=== PATIENT | female | born 1950 | race Caucasian/White ===

== ENCOUNTER 2019-07-06 10:49 | Day surgery (SDC) | payer MEDICARE, MEDICAID, SELFPAY ==
--- NOTE | 2019-07-06 | PATH_ITS ---
[facility] Accession Number: [id number] . 01 Material submitted: . rectum - RECTAL POLYPS . 01 Clinical history: . ENCOUNTER FOR SCREENING FOR MALIGNANT NEOPLASM . 02 Diagnosis: Rectum, Polyps: Fragments of tubular adenoma and fragment of hyperplastic polyp. Additional step sections examined. MRV 07/10/2019 1231 Local . 02 Electronically signed: . Mikey Alvarez MD, PhD, Pathologist NPI- [id number] . 01 Gross description: . Received one formalin-filled container labeled with the patient's name and labeled rectal polyps. The specimen consists of one fragment of hardy, soft tissue and possible debris which measures 0.2 x 0.2 x 0.2 cm. The specimen is totally submitted in one cassette. ([id number]) /[facility] 07/07/2019 0245 Local . 02 Pathologist provided ICD-10: D12.8, K62.1 . 02 CPT . 272646 Performed at: 01 [facility] [address] [facility], [place], [place] [id number] MD Jt Hinojosa MD Phone: [phone] Performed at: 02 [facility] [address] [place], [place] [id number] MD Holley Tijerina MD Phone: [phone]
[2019-07-06] MEDS: FLEETS ENEMA 1 EACH PR ×2 (13:25→13:42)
[2019-07-06 13:51] VITALS: BP 128/85; PULSE 60; RESP 15; TEMP 36.6; O2SAT 95; BMI 22.4
[2019-07-06] MEDS: SODIUM CHLORIDE 0.9% 1,000 ML 200 ML IV (14:07)
--- NOTE | 2019-07-06 14:07 | PM.HP.1 ---
History of Present Illness History of Present Illness Date Patient Seen: 07/06/19 Time Patient Seen: 14:07 Chief complaint: [id number] Narrative: Patient presents for colorectal screening. They had previous colonoscopy 5 years ago that was notable for a poly On further history denies any recent gastrointestinal symptoms. No nausea, vomiting, abdominal pain, loss of appetite, unexplained weight loss, change in bowel habits, diarrhea, constipation, melena, hematochezia, or bright red blood per rectum. Patient History Social History household members: none Family & Social History Social History: household members none Meds Home Medications and Allergies Home Medications Medication Instructions Recorded Confirmed Type alendronate [Fosamax] 70 mg PO QWEEK 07/06/19 07/06/19 History oxybutynin chloride 10 mg PO DAILY 07/06/19 07/06/19 History Allergies Allergy/AdvReac Type Severity Reaction Status Date / Time sulfamethoxazole Allergy Fatigued Verified 07/06/19 13:49 [From Bactrim] trimethoprim [From Bactrim] Allergy Fatigued Verified 07/06/19 13:49 Review of Systems Review of Systems ROS Unobtainable: All systems reviewed & are unremarkable except as noted in HPI and below Exam Vital Signs (past 8 hours): - 07/06/19 13:51 Temperature 97.8 F Pulse Rate 60 Respiratory Rate 15 Blood Pressure 128/85 Pulse Oximetry 95 Oxygen Delivery Method Room Air Narrative Exam Narrative: General-adult female no acute distress, well nourished HEENT-moist mucous membranes, no scleral icterus Neck-supple with full range of motion, no lymphadenopathy Chest- no labored respirations, clear to auscultation bilaterally Cardiac-regular rate and rhythm Abdomen-soft, nontender, non distended Extremities-no edema, warm well perfused Neurological-alert and oriented x 3. No focal deficits Skin-normal temperature and turgor, no rashes or ulcers Assessment & Plan Assessment and plan (1) Screening for colon cancer: Current visit: Yes Status: Acute Assessment & Plan narrative: Patient is requiring colorectal screening. Colonoscopy is recommended. Technical details were discussed. Risks, benefits, alternatives explained. Risks including but not limited to sedation, aspiration, bleeding, pain, missed lesion, incomplete examination, need for further radiographic studies, colonic perforation, need for major abdominal surgery, and all attendant risks major surgery were discussed at length. All questions were answered to their satisfaction, and they voiced understanding.
--- NOTE | 2019-07-06 14:13 | PM.OP.ENDO ---
Operative Date/Time/Diagnoses Date of procedure: 07/06/19 Time of procedure: 14:13 Pre-op diagnosis: Anemia Post-op diagnosis: same Procedure & Clinicians Study performed: Esophagoduodenoscopy Colonoscopy Same procedure as scheduled: Yes Indications: 69-year-old female who developed symptomatic anemia with guaiac-positive stools presented for a EGD and colonoscopy. Surgeon: Tapan Boyd Procedure Notes SCOAP/Timeout: Performed Procedure in detail: The scope was carefully inserted into mouth and advanced down the esophagus into the stomach. The stomach was insufflated. There was no evidence of gastritis or gastric ulcer. The pyloric channel was examined and was normal in its appearance. The scope was then retroflexed and a hiatal hernia of moderate size was observed. There was no evidence of Arsenio ulcer. The scope was then withdrawn into the esophagus where the Z-line was identified it was normal in its appearance. The stomach was then desufflated and the scope withdrawn. Digital rectal exam was performed which was negative for masses. The colonoscope was inserted into the rectum and carefully advanced through the colon. The ileocecal valve was reached and then the scope was carefully withdrawn. Inspection of the colon demonstrated only diverticulosis. There was no evidence of bleeding masses polyps or inflammation. Retroflexion within the rectum demonstrated grade 1 internal hemorrhoids. Scope withdrawal time: 8 Sedation minutes: 30 Findings: diverticulosis and hiatal hernia Specimen(s): none sent Complications: none Impression: Diverticulosis, hiatal hernia Post-procedure Recommendations: Other recommendation (refered to gastroenterology for possible capsule endoscopy) Disposition: same day surgery
--- NOTE | 2019-07-06 14:21 | PM.OP.ENDO ---
Operative Date/Time/Diagnoses Date of procedure: 07/06/19 Time of procedure: 14:21 Pre-op diagnosis: Screening colonoscopy Post-op diagnosis: same Procedure & Clinicians Study performed: Colonoscopy Same procedure as scheduled: Yes Indications: 69-year-old female with previous colonic resection presents for routine screening colonoscopy. Last colonoscopy was 5 years ago in notable for polyps Surgeon: Tapan Boyd Procedure Notes SCOAP/Timeout: Performed Procedure in detail: External hemorrhoids were observed. Digital rectal exam was performed was negative for masses. Scope was inserted into the rectum there were several small less than 1 cm polyps benign in appearence at 10 cm. The largest polyp was snared with electrocautery and removed. A second polyp was biopsied with the forceps. The site was found to be hemostatic. The scope was then advanced through the colon. The quality of the prep was poor. The patient had recieved 2 enems in pre op in addition to her home prep but we were unable to proceed safely due to poor visualization. Scope withdrawal time: Not applicable Sedation minutes: 20 Findings: polyp (rectum) Specimen(s): other (rectal polyp) Complications: none Impression: Rectal polyp Post-procedure Recommendations: Colonscopy in 1 year Disposition: same day surgery
[2019-07-06] MEDS: MIDAZOLAM 5 MG/5 ML VIAL IV (14:42)
[2019-07-06] MEDS: fentaNYL 250 MCG/5 ML INJ IV (14:42)
[2019-07-06 15:07] VITALS: BP 114/76; PULSE 73; RESP 14; TEMP 36.2; O2SAT 97
--- NOTE | 2019-07-06 15:19 | SUR.PHASEII ---
pt came directly from endo procedure room to phase II. pt in stable condition, vss. pt alert and talking to RN upon arrival. abd soft and pt denies any pain. pt tolerating oral intake without any difficultly. pt friend brought to bedside. bed in lowest position and call light given to pt.
[2019-07-06 15:27] VITALS: BP 125/79; PULSE 67; RESP 14; TEMP 36.2; O2SAT 99
== END 2019-07-06 15:30 | disposition home or self-care (01) ==
PROVIDERS: PCP Family Medicine; Visit Provider Surgery
PROC: 0DJD8ZZ Inspection of Lower Intestinal Tract, Via Natural or Artificial Opening Endoscopic (ICD-10-PCS; CPT 45378; principal; 2019-07-06 14:00)
DX: R19.5 Other fecal abnormalities (principal); D64.9 Anemia, unspecified; Z86.010 Personal history of colon polyps; K44.9 Diaphragmatic hernia without obstruction or gangrene; K57.30 Diverticulosis of large intestine without perforation or abscess without bleeding; K64.0 First degree hemorrhoids; D12.8 Benign neoplasm of rectum; K62.1 Rectal polyp
CPT/HCPCS: 43235; 45378; 99152; 99153; J2250; J3010

== ENCOUNTER → 2019-07-06 11:04 | Outpatient (CLI) | payer MEDICARE, MEDICAID, SELFPAY ==
--- NOTE | 2019-07-06 | DI.MG.S_ITS ---
BILATERAL DIGITAL SCREENING MAMMOGRAM 3D/2D WITH CAD: 07/06/2019 CLINICAL: Routine screening. Comparison is made to exams dated: 02/16/2017 mammogram - [facility], 03/13/2010 mammogram, and 02/21/2009 mammogram - [facility]. The tissue of both breasts is heterogeneously dense. This may lower the sensitivity of mammography. Current study was also evaluated with a Computer Aided Detection (CAD) system. No significant masses, calcifications, or other findings are seen in either breast. There has been no significant interval change. IMPRESSION: NEGATIVE There is no mammographic evidence of malignancy. A 1 year screening mammogram is recommended. This exam was interpreted at Station ID: [id number]. NOTE: For mammograms, a report in lay terms will be sent to the patient. Approximately 15% of breast malignancies will not be visualized mammographically. In the management of a palpable breast mass, a negative mammogram must not discourage biopsy of a clinically suspicious lesion. Electronically Signed By: Chay mi/meme:07/07/2019 04:28:17 letter sent: Normal Exam ACR BI-RADS Category 1: Negative [id number]
== END ==
PROVIDERS: PCP Family Medicine; Visit Provider Family Medicine
DX: Z12.31 Encounter for screening mammogram for malignant neoplasm of breast (principal)
CPT/HCPCS: 77063; 77067